=== PATIENT | female | born 1970 | race Caucasian/White ===

== ENCOUNTER 2021-07-24 23:43 | Emergency (ER) | payer OTHER, SELFPAY ==
[~2021-07-24] VITALS: Ht 162.6 cm; Wt 90.7 kg
[2021-07-24 23:43] VITALS: BP_SYST 103
--- NOTE | 2021-07-24 23:48 | NUR ---
ER Dr. Patel at bedside examining patient.
--- NOTE | 2021-07-24 23:48 | NUR ---
Patient BIB by ALS from home. C/O ALOC x today. Per reported, patient had ALOC at home, her called 911. No meds given at the scence. Awake, drowsy, confused, place patient on awake overnight monitor and pulse ox.
--- NOTE | 2021-07-24 23:55 | NUR ---
In and out cath , urine sample collected and sent to lab.
--- NOTE | 2021-07-25 | NUR ---
# 20 gauge angiocath placed to RAC. Use of asceptic technique. Opsite placed over site. Blood return noted. Blood for lab drawn from site. Flushed with 10 cc of normal saline. No evidence of infiltration noted. Patient tolerated well.
[2021-07-25 00:14] LABS: BILIRUBIN,URINE NEGATIVE (NEGATIVE); BLOOD, URINE 2+ (NEGATIVE); CLARITY/URINE CLEAR (CLEAR); COLOR,URINE YELLOW (YELLOW); GLUCOSE,URINE NEGATIVE (NEGATIVE); KETONES,URINE 1+ (NEGATIVE); LEUKOCYTE ESTERASE ,URINE NEGATIVE (NEGATIVE); NITRITE, URINE NEGATIVE (NEGATIVE); PROTEIN URINE 1+ (NEGATIVE)
--- NOTE | 2021-07-25 00:20 | NUR ---
BS 77 , Dr. Brock notified.
[2021-07-25 00:26] LABS: BASOPHILS # (AUTO) 0.1 K/uL (0.0-0.2); BASOPHILS % (AUTO) 1.9 % (0.0-2.0); HEMATOCRIT 37.5 % (36-48); HEMOGLOBIN 12.9 g/dL (12.0-16.0); LYMPHOCYTES # (AUTO) 0.4 K/uL (1.0-5.5); LYMPHOCYTES % (AUTO) 6.4 % (20.5-51.5); MEAN CORPUSCULAR HEMOGLOBIN 33 pg (27-31); MEAN CORPUSCULAR HGB CONC 34 % (32-36); MEAN CORPUSCULAR VOLUME 97 fL (79.0-98.0); MONOCYTES # (AUTO) 0.3 K/uL (0.0-1.0); MONOCYTES % (AUTO) 4.7 % (1.7-9.3); NEUTROPHILS # (AUTO) 5.2 K/uL (1.8-7.7); PLATELET COUNT (AUTO) 217 K/uL (130-430); RED BLOOD CELL COUNT(AUTO) 3.88 MIL/uL (4.2-6.2); RED CELL DISTRIBUTION WIDTH 12.8 % (9.0-15.0)
[2021-07-25 00:34] LABS: BARBITURATE, URINE NEGATIVE (NEG <=200); METHAMPHETAMINES SCREEN,URINE NEGATIVE (NEG <=500); URINE AMPHETAMINE NEGATIVE (NEG <=500); URINE METHADONE NEGATIVE (NEG <=200)
[2021-07-25 00:35] LABS: BENZODIAZEPINE, URINE POSITIVE (NEG <=150); CANNABINOID, URINE POSITIVE (NEG <=50); COCAINE, URINE NEGATIVE (NEG <=150); OPIATE, URINE NEGATIVE (NEG <=100); PHENCYCLIDINE SCREEN,URINE NEGATIVE (NEG <=25); UR TRICYCLIC ANTIDEPRESSANTS NEGATIVE (NEG <=300); URINE OXYCODONE SCREEN NEGATIVE (NEG <=100); URINE PROPOXYPHENE SCREEN NEGATIVE (NEG <=300)
--- NOTE | 2021-07-25 00:35 | NUR ---
COVID-19 swabs collected and sent to lab.
[2021-07-25 00:36] LABS: BACTERIA,URINE None Seen /HPF (None Seen)
[2021-07-25 00:36] LABS: ANION GAP 12 (5-15); CALCIUM 8.2 mg/dL (8.4-11.0); CHLORIDE 103 mmol/L (98-107); CREATININE 1.03 mg/dL (0.55-1.30); GLUCOSE 91 mg/dL (70-99); POTASSIUM 3.5 mmol/L (3.5-5.1); SODIUM SERUM 140 mmol/L (136-145); UREA NITROGEN, BLOOD 16 mg/dL (8-21)
[2021-07-25 00:37] LABS: HYALINE CASTS, URINE 0-10 /LPF (None Seen); MUCUS,URINE 2+ /LPF (None Seen)
[2021-07-25 00:41] LABS: ACETAMINOPHEN 3 ug/mL (1-30); ALANINE AMINOTRANSFERASE 21 U/L (12-78); ALBUMIN 3.4 g/dL (3.4-4.8); ASPARTATE AMINOTRANSFERASE 17 U/L (10-37); TOTAL BILIRUBIN 0.3 mg/dL (0.0-1.0)
[2021-07-25 00:43] LABS: GFR AFRICAN AMERICAN 73 mL/min (>90)
[2021-07-25 00:44] LABS: ALCOHOL, BLOOD < 3 mg/dL (<10)
[2021-07-25 00:46] LABS: CHOLESTEROL 133 mg/dL (<200); HDL CHOLESTEROL 44 mg/dL (>55); LDL CHOLESTEROL 81 mg/dL (<100); TRIGLYCERIDES 90 mg/dL (30-150)
--- NOTE | 2021-07-25 00:47 | NUR ---
Patient A/O,X4, - Patient states " Where am I?" , Patient reported, went to [place] yesterday and on the way back, had diarrhea and vomitting and used SBD oil and went to sleep and can recall after that.
--- NOTE | 2021-07-25 02:22 | NUR ---
Patient came back from CT scan.
--- NOTE | 2021-07-25 03:29 | NUR ---
Patient resting quietly. No acute distress noted. Vital signs within normal range.
[2021-07-25] MEDS ORDERED: NACL 0.9% 1,000 ML IV ONE ×2 (03:30)
--- NOTE | 2021-07-25 04:24 | NUR ---
Dr. Patel at bedside to explain results.
--- NOTE | 2021-07-25 05:28 | NUR ---
Dr. Patel spoke with Dr. Walton and discuss about CT result.
--- NOTE | 2021-07-25 05:42 | NUR ---
Patient called her to pick her up.
[2021-07-25] MEDS ORDERED: LORA-258 PO (05:50)
[2021-07-25 06:02] VITALS: BP_SYST 118
--- NOTE | 2021-07-25 06:02 | NUR ---
Patient given written and verbal discharge instructions and verbalizes understanding. ER MD discussed with patient the results and treatment provided. Patient in stable condition. ID arm band removed. IV catheter removed intact and dressing applied, no active bleeding. Rx of Ativan given. Patient educated on pain management and to follow up with PMD. Pain Scale 0/10. Opportunity for questions provided and answered. Medication side effect fact sheet provided.
== END 2021-07-25 06:02 | disposition home or self-care (01) ==
LOC: SED 23:43
DX: E86.0 Dehydration (principal); F13.239 Sedative, hypnotic or anxiolytic dependence with withdrawal, unspecified; F41.9 Anxiety disorder, unspecified; Z20.822 Contact with and (suspected) exposure to COVID-19
CPT/HCPCS: 36415; 70450; 76376; 80053; 80061; 80307; 81000; 83036; 85025; 87426; 96360; 96361; 99285; G0480; G0481; G0482; J7030